=== PATIENT | female | born 1940 | race Caucasian/White ===

== ENCOUNTER → 2016-09-18 | Outpatient (CLI) | payer MEDICARE ==
[~2016-09-18] MED LIST: ACETAMINOPHEN650 M3 PO; CENTRUM SILVER PO; CRESTOR5 MG PO; DOCUSATE SODIU100 MG PO; MAXZIDE 37.5 M1 EACH PO; MURO OU; NON-ASPIRIN EX500 M2 PO; OPTH OU; OXYCODONE HCL5 M1 PO; PRAVASTATIN SOD40 MG PO; SODIUM CHLORIDE OU; SYNTHROID125 PO; TRIAMTERENE-HC1 EACH PO; ZESTRIL5 MG PO
== END | disposition home or self-care (01) ==
LOC: CECH 10:18
DX: Z01.810 Encounter for preprocedural cardiovascular examination (principal)
CPT/HCPCS: 93306

== ENCOUNTER 2016-10-19 11:18 | Inpatient (IN) | payer MEDICARE ==
--- NOTE | ~2016-10-19 | CR72 ---
[facility] A Service of [facility] & [facility] RADIOLOGY TEXT RESULTS PATIENT: CHRISTIAN ELLIS LOCATION: [facility] 55- : 41 UNIT #: [id number] AGE: [address]: Jagjit Finley MD SEX: F ORDER DR: [id number] [facility] [address] [place], [place] [address] [id number] I MR#: [id number] Acc #: [id number] NAME: CHRISTIAN ELLIS : 1940 SEX: F STUDY DATE/TIME: 10/21/2016 4:52 UNIT: [facility] ROOM: [facility] STUDY DESCRIPTION: CR Chest Single View Portable Attending Physician: Jagjit Finley M.D. Referring Physician: Jagjit Finley M.D. Ordering Physician: Jagjit Finley M.D. Primary Care Physician: Miles Caruso M.D. MEDICAL IMAGING REPORT This report is preliminary unless electronic signature is present EXAM Portable chest 10/21/2016 HISTORY Right-sided chest tubes. Shortness of air for 2 days. COMPARISON Chest 10/20/2016 FINDINGS Frontal chest demonstrates stable right-sided chest tubes. No visible pneumothorax. Lungs otherwise clear. Heart size and mediastinum are stable. IMPRESSION Right-sided chest tubes are stable. No visible pneumothorax. Dictated by... Austin Pickering M.D. THIS IS AN ELECTRONICALLY VERIFIED REPORT Austin Pickering M.D. at 10/22/2016 4:40 PM LLOYD/radha TD: 10/21/2016 17:15 JOB #: [id number] MEDICAL IMAGING REPORT Page 1 of 1 COPY
--- NOTE | ~2016-10-19 | CR71 ---
[facility] A Service of [facility] & [facility] RADIOLOGY TEXT RESULTS PATIENT: CHRISTIAN ELLIS LOCATION: [facility] : 41 UNIT #: [id number] AGE: [address]: Jagjit Finley MD SEX: F ORDER DR: [id number] [facility] [address] [place], [place] [address] [id number] I MR#: [id number] Acc #: [id number] NAME: CHRISTIAN ELLIS : 1940 SEX: F STUDY DATE/TIME: 10/19/2016 14:42 UNIT: [facility] ROOM: STUDY DESCRIPTION: CR Chest Single View Attending Physician: Jagjit Finley M.D. Referring Physician: Jagjit Finley M.D. Ordering Physician: Jagjit Finley M.D. Primary Care Physician: Miles Caruso M.D. MEDICAL IMAGING REPORT This report is preliminary unless electronic signature is present EXAM Portable chest. DATE OF EXAM 10/19/2016 INDICATION Status post video-assisted thoracotomy. Evaluate chest tubes. FINDINGS This portable view of the chest shows 2 right chest tubes. There is no pneumothorax. The heart size is normal and the lungs are clear. There are degenerative changes in the left shoulder. Dictated by... Aníbal Narvaez M.D. THIS IS AN ELECTRONICALLY VERIFIED REPORT Aníbal Narvaez M.D. at 10/19/2016 11:08 PM JURGEN/elvis TD: 10/19/2016 17:06 JOB #: [id number] MEDICAL IMAGING REPORT Page 1 of 1 COPY
--- NOTE | ~2016-10-19 | DS ---
Unit #: [id number] #: [id number] Patient: KENDY GANDHI [id number] [place], [place] [address] [id number] I MR#: [id number] NAME: KENDY GANDHI ROOM: 558 Age: 76 Sex: F Admission Date: 10/19/2016 : 1940 Discharge Date: 10/22/2016 Attending Physician: Jagjit Finley M.D. Referring Physician: Jagjit Finley M.D. Primary Care Physician: Miles Caruso M.D. DISCHARGE SUMMARY PROCEDURES Status post right video-assisted thoracoscopy with pleural biopsies for pleurectomy and mechanical pleurodesis on 10/19/2016. HOSPITAL COURSE Ms. Kendy Gandhi is a 76-year-old female, who was seen in 04/2016 for evaluation of right pleural effusion. She initially presented to her family physician in 04/2016 as well with pleuritic chest pain and was treated with a course of antibiotics. She had presented back with Dr. Caruso with persistent chest discomfort. She underwent a chest x-ray, which showed a right pleural effusion. On 06/04/2016, showed a moderately large pleural effusion with complete atelectasis of the right lower lobe. A right thoracentesis was performed on 07/02/2016, with good evacuation of the right pleural space. She had presented back with Dr. Finley again in 07/2016 with recurrent right pleural effusion. On 10/19/2016, she presented to [facility]. She underwent a right video-assisted thoracoscopy with pleural biopsies, partial pleurectomy, and mechanical pleurodesis under direction of Dr. Jagjit Finley. Postoperatively, she has done well. On third postoperative day, her chest tubes had been removed. She is tolerating a regular diet and she is ready for discharge. PHYSICAL EXAMINATION VITAL SIGNS: Temperature is 97.9, heart rate 74, respiratory rate 16, blood pressure is 113/56. LUNGS: Decreased in the bases. CARDIOVASCULAR: S1, S2 without rub, without murmur. No S3 or S4. EXTREMITIES: She has a right lower extremity lymphedema, which is a long-standing issue over a period of about 35 years. ABDOMEN: Large, round, and soft. Bowel sounds positive. Nontender. No pulsatile masses or hepatosplenomegaly. LABORATORY STUDIES BUN 23, creatinine 0.8, sodium 137, potassium 3.9, WBCs is 9.2, platelets 292, hemoglobin 11.4, hematocrit 35.2. Culture on the tissue at 72 hours is negative. Culture on the fluid at 48 hours is negative. Pathology is pending. DISCHARGE MEDICATIONS Include Tylenol, Colace 100 mg one b.i.d., Pravastatin 40 mg once at bedtime, Zestril 5 mg once a day, multivitamin once a day, triamterene/hydrochlorothiazide 75/50 once a day, Levoxyl 100 mcg once a Unit #: [id number] #: [id number] Patient: KENDY GANDHI day, sodium chloride ophthalmic drops and Ju[place] drops once a day, oxycodone 5 mg tablets one or two every 4 hours p.r.n. for pain. IMPRESSION On postoperative day 3, she is status post right video-assisted thoracoscopy with pleural biopsies, pleurectomy, and mechanical pleurodesis. Chest tubes had been removed. Chest x-ray is pending. If chest x-ray shows no evidence of pneumothorax, she will be discharged home. She is to follow up with Dr. Finley on 11/01/2016 at 2:[address] [facility] office and have a chest x-ray before appointment. She is to no lifting over 10 pounds. No driving. She may shower in 3 days after removing all dressings and no tub baths. Dictated by... Shima Lucas A.P.R.N. for Rodo De La O/mikayla TD: 10/23/2016 04:38 JOB #: [id number] CC: Miles Caruso M.D. DISCHARGE SUMMARY Page 1 of 1 X Shima Lucas APPLIANCE WORKER X DISCHARGE SUMMARY
--- NOTE | ~2016-10-19 | CR71 ---
[facility] A Service of [facility] RADIOLOGY TEXT RESULTS PATIENT: CHRISTIAN ELLIS LOCATION: [facility] : 41 UNIT #: [id number] AGE: [address]: Jagjit Finley MD SEX: F ORDER DR: [id number] [facility] [address] [place], [place] [address] [id number] I MR#: [id number] Acc #: [id number] NAME: CHRISTIAN ELLIS : 1940 SEX: F STUDY DATE/TIME: 10/20/2016 5:27 UNIT: [facility] ROOM: [facility] STUDY DESCRIPTION: CR Chest Single View Attending Physician: Jagjit Finley M.D. Referring Physician: Jagjit Finley M.D. Ordering Physician: Jagjit Finley M.D. Primary Care Physician: Miles Caruso M.D. MEDICAL IMAGING REPORT This report is preliminary unless electronic signature is present EXAM Portable chest, 10/20/2016 HISTORY Postop VAT. Shortness of air for 2 days. COMPARISON Chest, 10/19/2016 FINDINGS Frontal chest demonstrates stable right-sided chest tubes. No visible pneumothorax. Lungs otherwise clear. Heart size and mediastinum are stable. IMPRESSION Stable right-sided chest tubes. No pneumothorax. No other acute chest findings. No change from 10/19/2016. Dictated by... Austin Pickering M.D. THIS IS AN ELECTRONICALLY VERIFIED REPORT Austin Pickering M.D. at 10/20/2016 11:29 PM Lashonda TD: 10/20/2016 16:07 JOB #: [id number] MEDICAL IMAGING REPORT Page 1 of 1 COPY
--- NOTE | ~2016-10-19 | OR ---
Unit #: [id number] #: [id number] Patient: CHRISTIAN ELLIS [id number] [address] [id number] I MR#: [id number] NAME: CHRISTIAN ELLIS ROOM: [facility] Date of Procedure: 10/19/2016 Admission Date: 10/19/2016 Surgeon: Jagjit Finley M.D. : 1940 Attending Physician: Jagjit Finley M.D. Referring Physician: Jagjit Finley M.D. Primary Care Physician: Miles Caruso M.D. OPERATIVE REPORT PREOPERATIVE DIAGNOSIS Recurrent exudative right pleural effusion. POSTOPERATIVE DIAGNOSIS Recurrent exudative right pleural effusion. PROCEDURES PERFORMED Right video-assisted thoracoscopy with pleural biopsy and subsequent parietal pleurectomy and mechanical pleurodesis. ANESTHESIA General. ESTIMATED BLOOD LOSS About 30 mL. DRAINS Two #28 chest tubes. COMPLICATIONS None. DESCRIPTION OF PROCEDURE The patient was taken to the operating room and placed on the operating room table in a supine position. After appropriate monitoring lines had been placed, general endotracheal anesthesia was then induced using a double-lumen endotracheal tube. Adequate positioning of this tube was ensured using the pediatric bronchoscope. The patient was placed on the operating room table in a left lateral decubitus position. A rolled sheet was placed beneath the left axillary area. The patient was secured in place on the operating room table using a brown bag as well as tape across the right hip. The right arm was supported on an arm support. The right chest was prepped with DuraPrep and draped in a sterile fashion. A small 1.5 cm skin incision was made in the mid axillary line over the seventh intercostal space. The incision was carried down through the subcutaneous tissue and muscle and fascia layers using the Bovie. With the right lung being deflated, the chest was entered at this level using a Leslie clamp and a gloved finger then inserted. A suction catheter was then inserted and directed into the posterior gutter. About 700 mL of nanda fluid was removed from the right pleural space with portions of this fluid being sent for cytology as well as cultures. A trocar introducer was inserted at this site and the thoracoscope then passed per this trocar introducer. Unit #: [id number] #: [id number] Patient: CHRISTIAN ELLIS Examination of the pleural space demonstrated some iaen-[id number] inflammation of the parietal pleura along the posterior gutter and especially in the lower chest. However, there was no obvious evidence of tumor implants seen on the parietal pleura in the gutter or on the diaphragmatic surface. A small counter-incision was made in the chest in the anterior axillary line over the fifth intercostal space. This incision was carried down through the subcutaneous tissue and muscle and fascial layers with hemostasis being obtained using the Bovie. Several biopsies of the parietal pleura were obtained in the lower right chest along the posterior gutter. These were sent to Pathology for frozen section. Frozen section demonstrated inflammatory changes, but no obvious evidence of tumor. In view of the fact that the pleural effusion was exudative and recurrent, it was elected to proceed with a parietal pleurectomy and mechanical pleurodesis of the diaphragm in order to try to avoid it from recurring. The parietal pleura was elevated off the chest wall using a Tonsil clamp initially and then using a large Leslie clamp. The parietal pleura was then further cut using scissors and the edges of the parietal pleura then grasped with the large Leslie clamp. It was used to strip the parietal pleura from the chest wall as dissection was being carried out beneath it. As portions of the parietal pleura were being removed in this fashion, it was then further removed from the chest cavity and sent for cultures as well as permanent sections. I was able to remove almost all the parietal pleura along the chest wall except for at the very apex of the chest. A small piece of Marlex mesh was attached to a curved lung clamp, and this was used to abrade the parietal pleura at the apex of the chest. It was also used to abrade the parietal pleura on the diaphragm. After this had been accomplished, the chest was irrigated with warm normal saline solution and then this was suctioned free along with any old blood clot in the chest. Two #28 chest tubes were then inserted per these 2 incisions in the chest with one being placed anterolaterally directed towards the apex and the other being placed posteriorly along the gutter. These chest tubes were sutured in place to the skin using 2-0 silk suture. Sterile dressings were applied. Estimated blood loss in the procedure was about 30 mL. Sponge and needle counts in the operation were correct. The patient tolerated the procedure well and left the operating room in satisfactory condition. Dictated by... Rodo De La O/mikayla TD: 10/20/2016 06:13 JOB #: [id number] OPERATIVE REPORT Page 1 of 1 X Jagjit Finley MD X PROCEDURE OPERATIVE NOTE
--- NOTE | ~2016-10-19 | CR72 ---
[facility] A Service of [facility] RADIOLOGY TEXT RESULTS PATIENT: CHRISTIAN ELLIS LOCATION: [address] [address] : 42 UNIT #: [id number] AGE: [address]: Jagjit Finley MD SEX: F ORDER DR: [id number] [place], [place] [address] [id number] I MR#: [id number] Acc #: [id number] NAME: CHRISTIAN ELLIS : 1940 SEX: F STUDY DATE/TIME: 10/22/2016 4:40 UNIT: [facility] ROOM: [facility] STUDY DESCRIPTION: CR Chest Single View Portable Attending Physician: Jagjit Finley M.D. Referring Physician: Jagjit Finley M.D. Ordering Physician: Jagjit Finley M.D. Primary Care Physician: Miles Caruso M.D. MEDICAL IMAGING REPORT This report is preliminary unless electronic signature is present EXAM Portable chest INDICATION Chest tube followup. PROCEDURE Frontal view chest COMPARISON 10/21/2016 FINDINGS Right-sided chest tubes are stable. There is some increasing fluid along the fissure of the right lung. Persistent atelectasis or scarring at the left lung base. No visible pneumothorax. IMPRESSION 1. The right-sided chest tubes are stable. There is no visible pneumothorax. 2. Increasing loculated fluid along the right fissure. Dictated by... Ugo May M.D. THIS IS AN ELECTRONICALLY VERIFIED REPORT Ugo May M.D. at 10/22/2016 9:56 PM DICKSON/donny TD: 10/22/2016 08:48 JOB #: [id number] MEDICAL IMAGING REPORT [facility] A Service [facility] RADIOLOGY TEXT RESULTS PATIENT: CHRISTIAN ELLIS LOCATION: [address] [address] : 42 UNIT #: [id number] AGE: [address]: Jagjit Finley MD SEX: F ORDER DR: Page 1 of 1 COPY
--- NOTE | ~2016-10-19 | CR72 ---
[facility] A Service of [facility] & [facility] RADIOLOGY TEXT RESULTS PATIENT: CHRISTIAN ELLIS LOCATION: [facility] 558-01 : 42 UNIT #: [id number] AGE: [address]: Jagjit Finley MD SEX: F ORDER DR: [id number] [facility] [address] [place], [place] [address] [id number] I MR#: [id number] Acc #: [id number] NAME: CHRISTIAN ELLIS : 1940 SEX: F STUDY DATE/TIME: 10/22/2016 UNIT: [facility] ROOM: [facility] STUDY DESCRIPTION: CR Chest Single View Portable Attending Physician: Jagjit Finley M.D. Referring Physician: Jagjit Finley M.D. Ordering Physician: Shima Lucas A.P.R.N. Primary Care Physician: Miles Caruso M.D. MEDICAL IMAGING REPORT This report is preliminary unless electronic signature is present EXAM Chest portable 10/22/2016 1324 hours HISTORY History of right-sided surgery with chest tube removal today. Evaluate for pneumothorax. COMPARISON 10/22/2016 at 0440 hours FINDINGS Portable upright chest demonstrates removal of 2 right chest tubes with no pneumothorax. Ovoid right midlung density which could represent loculated fluid is unchanged. There is slightly improved aeration at the left base. IMPRESSION Intervertebral of right chest tubes. There is no pneumothorax or significant effusion. Stable ovoid density in the right midlung. Dictated by... Rosalinda Cedeño M.D. THIS IS AN ELECTRONICALLY VERIFIED REPORT Rosalinda Cedeño M.D. at 10/22/2016 5:46 PM ELAINEM/garcía TD: 10/22/2016 15:12 JOB #: [id number] MEDICAL IMAGING REPORT Page 1 of 1 COPY
[~2016-10-19 11:18] MED LIST changes: -ACETAMINOPHEN650 M3 PO; -DOCUSATE SODIU100 MG PO; -OXYCODONE HCL5 M1 PO
[2016-10-19 15:04] LABS: ARTERIAL BLD GAS O2 SATURATION 98.9 % (90.0-100.0); ARTERIAL BLOOD GAS HCO3 24.4 mmol/L; ARTERIAL BLOOD GAS MET HB 0.8 %sat (0.0-2.0); ARTERIAL BLOOD GAS PCO2 45.7 mmHg (35.0-45.0); ARTERIAL BLOOD GAS pH 7.336 (7.350-7.450)
[2016-10-19 15:05] LABS: ARTERIAL BLOOD GAS ART SITE RIGHT RADIAL; ARTERIAL BLOOD GAS DELIVERY SIMPLE MASK; ARTERIAL DRAW? YES
[2016-10-19 15:53] LABS: BASOPHIL# 0.1 X10e3 (0-0.3); BASOPHIL% 0.7 % (0-2.5); EOSINOPHIL% 0.3 % (0.0-7.0); HEMATOCRIT 41.7 % (35.0-45.0); HEMOGLOBIN 13.4 gm/dL (12.0-16.0); LYMPHOCYTE# 1.4 X10e3 (1.0-3.5); LYMPHOCYTE% 9.3 % (17.0-45.0); MEAN CELL VOLUME 95.7 FL (83-96); MEAN CORPUSCULAR HEMOGLOBIN 30.7 PG (28-34); MEAN PLATELET VOLUME 8.4 FL (6.5-11.5); MONOCYTE# 0.5 X10e3 (0-1.0); MONOCYTE% 3.6 % (3.0-12.0); NEUTROPHIL% 86.1 % (40-75); PLATELET COUNT 293 X10e3 (140-420); RED BLOOD COUNT 4.36 X10e (3.90-5.30); RED CELL DISTRIBUTION WIDTH 13.4 % (11.0-15.5); WHITE BLOOD COUNT 15.1 X10e3 (4.0-10.5)
[2016-10-19 15:56] LABS: DIFF IND YES
[2016-10-19 16:03] LABS: BUN/CREATININE RATIO 23.12; CALCIUM SERUM 9.1 mg/dL (8.4-10.2); CREATININE SERUM 1.6 mg/dL (0.6-1.4); GLOM FILT RATE Estimated 31.2 mL/min (>60); PLATELET ESTIMATE NORMAL (NORMAL); POTASSIUM 3.8 mmol/L (3.5-5.1); RBC NORMAL YES
[2016-10-20 07:14] LABS: BASOPHIL% 0.3 % (0-2.5); EOSINOPHIL% 0.1 % (0.0-7.0); LYMPHOCYTE# 1.3 X10e3 (1.0-3.5); LYMPHOCYTE% 11.2 % (17.0-45.0); MEAN CELL VOLUME 96.1 FL (83-96); MEAN CORPUSCULAR HEMOGLOBIN 30.2 PG (28-34); MEAN CORPUSCULAR HGB CONC 31.5 g/dL (30-36); MEAN PLATELET VOLUME 7.8 FL (6.5-11.5); MONOCYTE# 1.1 X10e3 (0-1.0); MONOCYTE% 9.4 % (3.0-12.0); NEUTROPHIL# 8.9 X10e3 (1.5-7.1); PLATELET COUNT 268 X10e3 (140-420); RED BLOOD COUNT 3.96 X10e (3.90-5.30); RED CELL DISTRIBUTION WIDTH 13.1 % (11.0-15.5); WHITE BLOOD COUNT 11.3 X10e3 (4.0-10.5)
[2016-10-20 07:16] LABS: DIFF IND NO
[2016-10-20 07:36] LABS: CALCIUM SERUM 8.7 mg/dL (8.4-10.2); CREATININE SERUM 1.2 mg/dL (0.6-1.4); GLOM FILT RATE Estimated 44.2 mL/min (>60); POTASSIUM 3.8 mmol/L (3.5-5.1)
[2016-10-21 05:16] LABS: BASOPHIL% 0.4 % (0-2.5); EOSINOPHIL# 0.1 X10e3 (0-0.7); HEMATOCRIT 36.4 % (35.0-45.0); HEMOGLOBIN 11.7 gm/dL (12.0-16.0); LYMPHOCYTE# 2.1 X10e3 (1.0-3.5); LYMPHOCYTE% 20.2 % (17.0-45.0); MEAN CELL VOLUME 95.7 FL (83-96); MEAN CORPUSCULAR HEMOGLOBIN 30.8 PG (28-34); MEAN CORPUSCULAR HGB CONC 32.2 g/dL (30-36); MONOCYTE# 1.1 X10e3 (0-1.0); MONOCYTE% 10.6 % (3.0-12.0); NEUTROPHIL# 7.1 X10e3 (1.5-7.1); NEUTROPHIL% 67.8 % (40-75); PLATELET COUNT 285 X10e3 (140-420); RED BLOOD COUNT 3.81 X10e (3.90-5.30); RED CELL DISTRIBUTION WIDTH 13.3 % (11.0-15.5); WHITE BLOOD COUNT 10.4 X10e3 (4.0-10.5)
[2016-10-21 05:17] LABS: DIFF IND NO
[2016-10-21 06:26] LABS: BILIRUBIN,TOTAL 0.3 mg/dL (0.2-2.0); BUN/CREATININE RATIO 22.3; CALCIUM SERUM 8.9 mg/dL (8.4-10.2); CREATININE SERUM 1.3 mg/dL (0.6-1.4); GLOM FILT RATE Estimated 40.1 mL/min (>60); MAGNESIUM 1.8 mg/dL (1.6-3.0); POTASSIUM 4.2 mmol/L (3.5-5.1); PROTEIN TOTAL SERUM 6.1 g/dL (6.0-8.3)
[2016-10-22 06:37] LABS: HEMATOCRIT 35.2 % (35.0-45.0); HEMOGLOBIN 11.4 gm/dL (12.0-16.0); MEAN CELL VOLUME 95.4 FL (83-96); MEAN CORPUSCULAR HEMOGLOBIN 30.8 PG (28-34); MEAN CORPUSCULAR HGB CONC 32.3 g/dL (30-36); MEAN PLATELET VOLUME 8.1 FL (6.5-11.5); RED BLOOD COUNT 3.69 X10e (3.90-5.30); RED CELL DISTRIBUTION WIDTH 13.2 % (11.0-15.5); WHITE BLOOD COUNT 9.2 X10e3 (4.0-10.5)
[2016-10-22 07:13] LABS: BUN/CREATININE RATIO 28.75; CREATININE SERUM 0.8 mg/dL (0.6-1.4); GLOM FILT RATE Estimated 72.2 mL/min (>60); POTASSIUM 3.9 mmol/L (3.5-5.1)
[2016-10-22] MEDS ORDERED: ACETAMINOPHEN650 M3 PO (16:43)
[2016-10-22] MEDS ORDERED: DOCUSATE SODIU100 MG PO (16:44)
[2016-10-22] MEDS ORDERED: OXYCODONE HCL5 M1 PO (16:48)
== END 2016-10-22 18:43 | disposition home or self-care (01) | DRG 165 ==
LOC: CSUR 11:18 → CPACUOF 14:35 → CICCU2 10-20 07:30 → C5B 10-20 18:46
PROVIDERS: Internal Medicine; Surgery
PROC: 0B5N4ZZ Destruction of Right Pleura, Percutaneous Endoscopic Approach (ICD-10-PCS; 2016-10-19)
PROC: 0BBN4ZX Excision of Right Pleura, Percutaneous Endoscopic Approach, Diagnostic (ICD-10-PCS; 2016-10-19)
PROC: 0BBN4ZX Excision of Right Pleura, Percutaneous Endoscopic Approach, Diagnostic (ICD-10-PCS; principal; 2016-10-19 13:00)
DX: J90 Pleural effusion, not elsewhere classified (principal); I34.1 Nonrheumatic mitral (valve) prolapse; I45.10 Unspecified right bundle-branch block; I10 Essential (primary) hypertension; Z90.710 Acquired absence of both cervix and uterus; Z77.090 Contact with and (suspected) exposure to asbestos; R01.1 Cardiac murmur, unspecified; M79.605 Pain in left leg; M79.604 Pain in right leg; K59.00 Constipation, unspecified; R94.31 Abnormal electrocardiogram [ECG] [EKG]
CPT/HCPCS: 36415; 36600; 71010; 71020; 80048; 80053; 81003; 82803; 83735; 85025; 85027; 85610; 85730; 86850; 86900; 86901; 87070; 87075; 87102; 87116; 87205; 87206; 88108; 88305; 88331; 93005; 94010; 94760; 97116; 97161; 97167; 97530; 97535; C1781; G0238; G8978-GP; G8979-GP; G8987-GO; G8988-GO; G8989-GO; J0690; J1644; J2250; J2270; J2405; J3010

== ENCOUNTER → 2016-10-29 | Outpatient (CLI) | payer MEDICARE ==
[~2016-10-29] MED LIST changes: +ACETAMINOPHEN650 M3 PO; +DOCUSATE SODIU100 MG PO; +OXYCODONE HCL5 M1 PO
--- NOTE | ~2016-10-29 | CR63 ---
[facility] A Service of [facility] & [facility] RADIOLOGY TEXT RESULTS PATIENT: CHRISTIAN ELLIS LOCATION: [facility] : 42 UNIT #: [id number] AGE: [address]: Jagjit Finley MD SEX: F ORDER DR: [id number] O MR#: [id number] Acc #: [id number] NAME: CHRISTIAN ELLIS : 1940 SEX: F STUDY DATE/TIME: 04/08/2017 11:46 [facility]: STUDY DESCRIPTION: CR Chest 2 View Attending Physician: Jagjit Finley M.D. Referring Physician: Jagjit Filney M.D. Ordering Physician: Jagjit Finley M.D. Primary Care Physician: Miles Caruso M.D. MEDICAL IMAGING REPORT This report is preliminary unless electronic signature is present. EXAM Chest x-ray 04/08 INDICATIONS Follow up the right pleural effusion. Recent pneumonia. FINDINGS 2 views of the chest compared with 02/05/2017. Cardiac mediastinal contours are stable. There is continued elevation of the right hemidiaphragm with a trace amount of right pleural fluid. There is some mild atelectasis in the bases, unchanged. No pneumothorax. IMPRESSION No significant interval change. Dictated by... Scottie Hodges Jr., M.D. THIS IS AN ELECTRONICALLY VERIFIED REPORT Scottie Hodges Jr., M.D. at 04/09/2017 4:38 PM JAGDISH/francoise TD: 04/08/2017 15:04 JOB #: [id number] MEDICAL IMAGING REPORT Page 1 of 1
== END | disposition home or self-care (01) ==
LOC: SRAD 12:51
DX: J90 Pleural effusion, not elsewhere classified (principal); J18.1 Lobar pneumonia, unspecified organism
CPT/HCPCS: 71020